=== PATIENT | female | born 1985 | race Caucasian/White ===

== ENCOUNTER → 2016-05-08 | Outpatient (CLI) | payer OTHER | LOC: LABWHC1 13:30 | PROVIDERS: ATTEND Obstetrics & Gynecology | DX: Z34.80 Encounter for supervision of other normal pregnancy, unspecified trimester (principal) | CPT/HCPCS: 36415; 84702 ==

== ENCOUNTER → 2016-05-10 | Outpatient (CLI) | payer OTHER | END | disposition home or self-care (01) | LOC: LABWHC1 13:37 | PROVIDERS: ATTEND Obstetrics & Gynecology | DX: Z34.80 Encounter for supervision of other normal pregnancy, unspecified trimester (principal); Z3A.00 Weeks of gestation of pregnancy not specified | CPT/HCPCS: 36415; 84702 ==

== ENCOUNTER → 2016-06-05 | Outpatient (CLI) | payer OTHER ==
--- NOTE | 2016-06-05 15:47 | US ---
EXAMINATION TYPE: US OB <= 14 wk fetus DATE OF EXAM: 06/05/2016 3:29 PM COMPARISON: NONE CLINICAL HISTORY: O46.91 1st Trimester Bleeding. EXAM PERFORMED: Transvaginal (TV) and Transabdominal (TA) EXAM MEASUREMENTS: GESTATIONAL AGE / DATING Physician Established: not established Dates by LMP: (8 weeks/1 days) EDC: 01/14/2017 Dates by First Scan: OIL CHANGER Dates by Current Scan for: (6 weeks/4 days) EDC: N/A MATERNAL ANATOMY Uterus: 7.3 x 4.6 x 4.6cm Right Ovary: not seen, overlying bowel gas Left Ovary: 3.0 x 2.5 x 2.3cm, 1.0cm cystic area seen Post CDS / Adnexa: wnl Presence of free fluid: no Presence of corpus luteal cyst: possible on the left Presence of subchorionic bleed: no GESTATION / SURVEY CRL: 1.2 (7 weeks/3 days) MSD: 1.4 (5 weeks/5 days) Yolk Sac (normal less than 6mm): 0.5cm Heart Rate: N/A IUP: Demise Date of LMP: 04/09/2016 Beta HcG (if available): not available Spoke with office regarding demise, patient to go to office next Single live intrauterine gestation is identified as gestational sac, yolk sac, pole are present . Gestational sac appears abnormal as is elongated. heart tones cannot be detected despite diana ral attempts. No free fluid is seen in pelvic cul-de-sac. Left ovary is seen. Right ovary is not clearly identified. Within left ovary there is 1.4 cm ill-defi tomeka anechoic lesion could reflect corpus luteal cyst. No suspicious extraovarian adnexal masses are s een. IMPRESSION: Abnormal study favoring intrauterine demise, too early to visualize live intrauterine is felt much less likely as heart tones are suspected to be visualized at this mean crown-rump length.
== END ==
LOC: RADUSWWP 14:59
PROVIDERS: ATTEND Obstetrics & Gynecology
DX: O02.1 Missed abortion (principal); Z3A.01 Less than 8 weeks gestation of pregnancy
CPT/HCPCS: 76801; 76817

== ENCOUNTER → 2016-06-05 | Outpatient (CLI) | payer OTHER ==
[2016-06-05 17:10] LABS: Basophils # (A) 0.1 k/uL (0-0.2); Basophils % (A) 1 %; CH 30.2; CHCM 33.9; Eosinophils # (A) 0.1 k/uL (0-0.7); Eosinophils % (A) 1 %; HCT 44.7 % (34.0-46.0); HDW 2.31; HGB 14.7 gm/dL (11.4-16.0); Luc # (Auto) 0.17; Luc % (Auto) 2; Lymphocytes # (A) 1.8 k/uL (1.0-4.8); Lymphocytes % (A) 19 %; MCH 29.4 pg (25.0-35.0); MCHC 32.9 g/dL (31.0-37.0); MCV 89.2 fL (80.0-100.0); Mean Platelet Volume 7.8; Monocytes # (A) 0.3 k/uL (0-1.0); Monocytes % (A) 4 %; Neutrophils % (A) 74 %; RBC 5.01 m/uL (3.80-5.40); WBC 9.5 k/uL (3.8-10.6); WBC (Perox) 9.54
== END | disposition home or self-care (01) ==
LOC: LABPAT 16:54
PROVIDERS: ATTEND Obstetrics & Gynecology
DX: Z01.812 Encounter for preprocedural laboratory examination (principal); N96 Recurrent pregnancy loss
CPT/HCPCS: 36415; 84439; 84443; 85025

== ENCOUNTER 2016-06-07 06:36 | Day surgery (SDC) | payer OTHER ==
[2016-06-06 11:31] VITALS: BMI 23.8
--- NOTE | 2016-06-06 16:47 | P.HPOB ---
History of Present Illness H&P Date: 06/06/16 Chief Complaint: Missed This is a 31 y.o. female, 2, para 0, with a LMP of 04/09/2016, who presents for suction dilatation and curettage secondary to missed . On Saturday, by her LMP, she should have been 8-1/7 weeks, but by US she was measuring about 7 weeks with no heart rate and irregular sac. She has no bleeding, but has been experiencing some cramping. She did have another confirmatory US in the office on 06/06/2016 that still showed a demise. Her blood type is O+. She would like tissue sent for chromosomal analysis since this is her 2nd miscarriage in a row and she has no live births. OB Hx: . 1 previous miscarriage at around 5 weeks, s/p D&C. 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 Social Hx: . Works at [employer]. Review of Systems Genitourinary: Reports pelvic pain (mild cramping), Reports , Denies abnormal vaginal bleeding Past Medical History Past Medical History: No Reported History Additional Past Medical History / Comment(s): miscarriage, History of hypoglycemia History of Any Multi-Drug Resistant Organisms: None Reported Past Surgical History: Cholecystectomy Additional Past Surgical History / Comment(s): D&C,Removal of precancerous moles Past Anesthesia/Blood Transfusion Reactions: Previous Problems w/ Anesthesia Additional Past Anesthesia/Blood Transfusion Reaction / Comment(s): Hx of panic attack and very emotional with anesthesia,no hx blood transfusion Past Psychological History: No Psychological Hx Reported Smoking Status: Never smoker Past Alcohol Use History: Rare Past Drug Use History: None Reported - Past Family History Mother Family Medical History: No Reported History Additional Family Medical History / Comment(s): glaucoma Father Family Medical History: Hypertension Additional Family Medical History / Comment(s): glaucoma Medications and Allergies Home Medications Medication Instructions Recorded Confirmed Type Pnv with Ca,No.72/Iron/FA 1 each PO DAILY 09/08/15 06/06/16 History [ Plus Tablet] Acetaminophen Tab [Tylenol] 1 tab PO Q4-6H PRN 09/09/15 06/07/16 History Allergies Allergy/AdvReac Type Severity Reaction Status Date / Time erythromycin base AdvReac Abdominal Verified 06/06/16 11:23 Pain Exam Osteopathic Statement: *. No significant issues noted on an osteopathic structural exam other than those noted in the History and Physical/Consult. - Vital Signs Vital signs: Intake and Output 06/06/16 06/06/16 06/06/16 06:59 14:59 22:59 Other: Weight 63.049 kg Patient Weight 06/07/16 06:59 Weight 63.049 kg HEENT: within normal limits Heart: regular rate and rhythm Lungs: clear to auscultation bilaterally Abdomen: soft, non-tender Pelvic exam: cervix closed, no bleeding. Uterus retroverted, non-tender, with no adnexal masses or tenderness. Extremities: neg. Alysa's. Assessment and Plan (1) Missed Status: Acute Plan: Proceed with suction dilatation and curettage. Will send tissue for chromosomal analysis due to recurrent miscarriage. I have discussed the risks, benefits, and alternative therapies for the above- mentioned procedure and for both sedation/anesthesia as well as necessary blood products administration, if indicated, as they pertain to this patient. The patient has indicated her understanding and acceptance of the risks and procedures discussed.
[~2016-06-07 06:36] MED LIST: DEXAMETHASONE SOD PHOSPHATE 10 MG/ML 1 ML VIAL IV ONE; HYDROmorphone 1 MG/ML 1 ML SYRINGE IVP PRN; LACTATED RINGERS 1,000 ML IV SCH; MIDAZOLAM 2 MG/2 ML VIAL IV PRN; ONDANSETRON 4 MG/2 ML VIAL IVP ONE; Pre Op ABX Message 1 EACH MISC MISCELLANE ONE
[2016-06-07] MEDS ORDERED: LIDOCAINE 1% 20 ML VIAL (10MG/ML) FOR IV START INTRADERMA ONE (07:10)
[2016-06-07] MEDS ORDERED: SCOPOLAMINE 1.5MG/72HR PATCH TRANSDERM ONE (07:14)
[2016-06-07] MEDS ORDERED: MIDAZOLAM 2 MG/2 ML VIAL ONE (07:36)
[2016-06-07] MEDS ORDERED: LIDOCAINE 1% INJ 10MG/ML (20 ML MDV) ONE (07:36)
[2016-06-07] MEDS ORDERED: fentaNYL (PF) 50 MCG/ML 2 ML AMP ONE (07:36)
[2016-06-07] MEDS ORDERED: PROPOFOL 10 MG/ML 20 ML VIAL IV ONE (07:36)
[2016-06-07 07:45] LABS: Glucose,Whole Blood 82 mg/dL (75-99)
--- NOTE | 2016-06-07 08:03 | P.OP ---
Date of Procedure: 06/07/16 Preoperative Diagnosis: Missed Recurrent miscarriage Postoperative Diagnosis: Same Procedure(s) Performed: Suction dilation and curettage Anesthesia: ALEX Surgeon: Veronica Ballard Estimated Blood Loss (ml): 5 Pathology: other (Products of conception) Condition: stable Disposition: same day Indications for Procedure: This is a 31 y.o. female, 2, para 0, with a LMP of 04/09/2016, who presents for suction dilatation and curettage secondary to missed . On Saturday, by her LMP, she should have been 8-1/7 weeks, but by US she was measuring about 7 weeks with no heart rate and irregular sac. She has no bleeding, but has been experiencing some cramping. She did have another confirmatory US in the office on 06/06/2016 that still showed a demise. Her blood type is O+. She would like tissue sent for chromosomal analysis since this is her 2nd miscarriage in a row and she has no live births. Operative Findings: Uterus is retroverted and sounded to 9 cm. No adnexal masses are palpated. A large amount of products of conception are obtained. Description of Procedure: The patient is taken to the operating room where she is placed in the dorsal lithotomy position. She is prepped and draped in the normal sterile fashion. Bladder is drained with a catheter and then removed. Examination is performed under anesthesia. Uterus is found to be retroverted with no adnexal masses palpated. A weighted speculum was placed in the patient's vagina and a right angle retractor was used to visualize the cervix. The anterior lip of the cervix is grasped with a single-tooth tenaculum. Uterus is sounded to 9 cm. Cervix is gently dilated with Neumann dilators until an 8 mm curved suction curet to be placed. Suction curetting was performed with a large amount of tissue obtained. Next a large curette was then used for gentle curettage with no further tissue obtained. Minimal bleeding was noted. Single-tooth tenaculum is removed. Pressure was applied to the tenaculum site with a ring forcep. Once this was removed no further bleeding was noted. All instruments are removed from the vagina. All sponge and needle counts are correct. The patient is then taken to recovery room in stable condition. Tissue will be sent for chromosomal analysis due to recurrent miscarriage.
[2016-06-07 08:05] VITALS: TEMP 97.9
[2016-06-07] MEDS ORDERED: KETOROLAC 30 MG/ML 1 ML VIAL IVP ONE (08:16)
[2016-06-07 08:22] VITALS: RESP 16
[2016-06-07] MEDS ORDERED: LACTATED RINGERS 1,000 ML IV ONE (08:35)
[2016-06-07 09:27] VITALS: BP 105/68; PULSE 76
[2016-06-12 08:02] LABS: Mis test requested (Non-blood) Chromosome Analysis
== END 2016-06-07 09:38 | disposition home or self-care (01) ==
LOC: OR 06:36
PROVIDERS: ATTEND Obstetrics & Gynecology
DX: O02.1 Missed abortion (principal); N96 Recurrent pregnancy loss; N85.4 Malposition of uterus; Z79.899 Other long term (current) drug therapy
CPT/HCPCS: 86900; 86901; 88305; 86850; 59820; J2250; J1100; J2405; J2001; J3010; J1885; J2704

== ENCOUNTER → 2016-07-02 | Outpatient (CLI) | payer OTHER ==
--- NOTE | 2016-07-02 13:22 | US ---
EXAMINATION TYPE: US transvaginal DATE OF EXAM: 07/02/2016 1:05 PM COMPARISON: 06/05/2016 CLINICAL HISTORY: R10.2 PELVIC PAIN,G89.18 PODTOPERATIVE PAIN. D&C 4 weeks ago, pelvic pain TECHNIQUE: Transvaginal (TV) Date of LMP: unknown EXAM MEASUREMENTS: Uterus: 5.9 x 3.9 x 4.4 cm Endometrial Stripe: 0.6 cm Right Ovary: 3.2 x 1.7 x 2.8 cm Left Ovary: 3.2 x 2.3 x 2.9 cm 1. Uterus: Retroverted Possible Nabothian cyst = 0.8cm 2. Endometrium: appears wnl 3. Right Ovary: follicles noted 4. Left Ovary: subtle complex area = 1.8 x 2.2 x 1.6cm 5. Bilateral Adnexa: free fluid adjacent to right ovary 6. Posterior cul-de-sac: free fluid noted IMPRESSION: 1. Cervical nabothian cysts. 2. Small amount of free fluid. 3. Complex area left ovary may reflect hemorrhagic cyst. Consider follow-up study in 6 weeks.
== END | disposition home or self-care (01) ==
LOC: RADUSWWP 12:42
PROVIDERS: ATTEND Obstetrics & Gynecology
DX: N88.8 Other specified noninflammatory disorders of cervix uteri (principal); R10.2 Pelvic and perineal pain; G89.18 Other acute postprocedural pain
CPT/HCPCS: 76830

== ENCOUNTER → 2016-07-11 | Outpatient (CLI) | payer OTHER | END | disposition home or self-care (01) | LOC: LABWHC1 16:36 | PROVIDERS: ATTEND Obstetrics & Gynecology Reproductive Endocrinology | DX: N91.0 Primary amenorrhea (principal) | CPT/HCPCS: 36415; 84702 ==

== ENCOUNTER → 2016-08-07 | Outpatient (CLI) | payer OTHER ==
[2016-08-07 08:50] LABS: Follicle Stimulating Hormone 5.3 mIU/mL; Prolactin 17.4 ng/mL (3.0-18.6)
== END | disposition home or self-care (01) ==
LOC: LABWHC1 07:08
PROVIDERS: ATTEND Obstetrics & Gynecology Reproductive Endocrinology
DX: N96 Recurrent pregnancy loss (principal)
CPT/HCPCS: 36415; 82627; 82670; 83001; 83002; 83498; 84146; 84403; 84439; 84443

== ENCOUNTER → 2016-09-19 | Outpatient (CLI) | payer OTHER ==
[2016-09-19 07:10] LABS: CH 30.1; CHCM 34.5; HCT 45.1 % (34.0-46.0); HDW 2.42; HGB 15.3 gm/dL (11.4-16.0); MCH 29.7 pg (25.0-35.0); MCHC 33.9 g/dL (31.0-37.0); MCV 87.6 fL (80.0-100.0); Mean Platelet Volume 8.9; RBC 5.15 m/uL (3.80-5.40); RDW 12.5 % (11.5-15.5); Reticulocyte % 1.3 % (0.5-2.0); WBC 6.8 k/uL (3.8-10.6)
[2016-09-19 12:50] LABS: ALT 31 U/L (9-52); AST 19 U/L (14-36); Alkaline Phosphatase 73 U/L (38-126); Anion Gap 9 mmol/L; Blood Urea Nitrogen 12 mg/dL (7-17); Calcium 9.5 mg/dL (8.4-10.2); Carbon Dioxide 27 mmol/L (22-30); Chloride 102 mmol/L (98-107); Glucose 88 mg/dL (74-99); Iron 133 ug/dL (37-170); Non-African American GFR(MDRD) >60 (>60 ml/min/1.73 sqM); Potassium 4.6 mmol/L (3.5-5.1); Sodium 138 mmol/L (137-145); Total Bilirubin 0.9 mg/dL (0.2-1.3); Total Protein 6.9 g/dL (6.3-8.2)
[2016-09-19 12:59] LABS: % Iron Saturation 37.6 % (20-50); Total Iron Binding Capacity 354 ug/dL (265-497)
[2016-09-20 12:14] LABS: Protein C (Activity) 98 % (70 - 130)
[2016-09-21 14:49] LABS: Free Protein S Antigen 95 % (50 - 147)
[2016-09-24 08:34] LABS: Mis test requested (Blood) FACTOR X ACTIVITY
== END | disposition home or self-care (01) ==
LOC: LABWHC1 06:38
PROVIDERS: ATTEND Family Medicine
DX: D64.9 Anemia, unspecified (principal); T14.8 Other injury of unspecified body region; D51.8 Other vitamin B12 deficiency anemias; R05 Cough; D68.2 Hereditary deficiency of other clotting factors
CPT/HCPCS: 36415; 80053; 81241; 82728; 83540; 83550; 85027; 85045; 85260; 85300; 85303; 85306

== ENCOUNTER → 2017-02-20 | Outpatient (CLI) | payer OTHER | END | disposition home or self-care (01) | LOC: LABWHC1 15:31 | PROVIDERS: ATTEND Obstetrics & Gynecology | DX: Z34.80 Encounter for supervision of other normal pregnancy, unspecified trimester (principal); Z3A.00 Weeks of gestation of pregnancy not specified | CPT/HCPCS: 36415; 84702 ==

== ENCOUNTER 2017-03-18 08:47 | Emergency (ER) | payer OTHER ==
[2017-03-18 08:52] VITALS: RESP 18
--- NOTE | 2017-03-18 09:27 | ED ---
Female Urogenital HPI - General Chief complaint: Vaginal Bleeding Stated complaint: Bleeding and 8 weeks Time Seen by Provider: 03/18/17 08:56 Source: patient Mode of arrival: ambulatory Limitations: no limitations - History of Present Illness Initial comments: This is a 31 year old female who presents with a chief complaint of bleeding which began Saturday. The patient is 8 weeks and states she passed a clot today. She states she has had cramping in her lower abdomen, mild lower back pain, and has active vaginal bleeding. She has a significant history of 2 previous miscarriages in the first trimester. The patient is and is currently being seen by Dr. Ballard. She denies nausea, vomiting, diarrhea or recent illness. Last Menstrual Period: 01/23/17 - Related Data Home Medications Medication Instructions Recorded Confirmed Pnv,Calcium 72/Iron/Folic Acid 1 tab PO HS 09/08/15 03/18/17 [ Plus Tablet] Allergies Allergy/AdvReac Type Severity Reaction Status Date / Time erythromycin base AdvReac Abdominal Verified 03/18/17 09:33 Pain Review of Systems ROS Statement: Those systems with pertinent positive or pertinent negative responses have been documented in the HPI. ROS Other: All systems not noted in ROS Statement are negative. Past Medical History Past Medical History: No Reported History Additional Past Medical History / Comment(s): miscarriage, History of hypoglycemia History of Any Multi-Drug Resistant Organisms: None Reported Past Surgical History: Cholecystectomy Additional Past Surgical History / Comment(s): D&C,Removal of precancerous moles Past Anesthesia/Blood Transfusion Reactions: Previous Problems w/ Anesthesia Additional Past Anesthesia/Blood Transfusion Reaction / Comment(s): Hx of panic attack and very emotional with anesthesia,no hx blood transfusion Past Psychological History: No Psychological Hx Reported Smoking Status: Never smoker Past Alcohol Use History: Rare Past Drug Use History: None Reported - Past Family History Mother Family Medical History: No Reported History Additional Family Medical History / Comment(s): glaucoma Father Family Medical History: Hypertension Additional Family Medical History / Comment(s): glaucoma General Exam Limitations: no limitations General appearance: alert, in no apparent distress Head exam: Present: atraumatic, normocephalic, normal inspection Eye exam: Present: normal appearance Respiratory exam: Present: normal lung sounds bilaterally. Absent: respiratory distress, wheezes, rales, rhonchi, stridor Cardiovascular Exam: Present: regular rate, normal rhythm, normal heart sounds. Absent: rubs, gallop, clicks GI/Abdominal exam: Present: soft, tenderness (Tender with palpation of the right lower quadrant). Absent: distended, guarding, rebound, rigid Extremities exam: Present: normal inspection Back exam: Absent: CVA tenderness (R), CVA tenderness (L) Neurological exam: Present: alert, oriented X3 Skin exam: Present: warm, dry Course Vital Signs 03/18/17 08:49 Temperature 98.1 F Pulse Rate 95 Respiratory 18 Rate Blood Pressure 139/96 O2 Sat by Pulse 100 Oximetry Medical Decision Making - Medical Decision Making 31-year-old female presents emergency Department chief complaint vaginal bleeding and early . Patient had lab work, ultrasound. Patient's ultrasound shows single viable IUP measuring 6 weeks and 5 days heart rate 125. Patient's hCG is 9300. This was an improvement from prior. Patient has appointment on Saturday with her CERTIFIED PROFESSIONAL CODER. Patient was recommended to have a pelvic exam though she declined states that she would rather not she has appointment on Saturday. Patient we given a prescription for repeat hCG and return for any worsening symptoms. - Lab Data Result diagrams: 03/18/17 09:30 03/18/17 09:30 Lab Results 03/18/17 03/18/17 03/18/17 Range/Units 09:29 09:30 09:30 WBC (3.8-10.6) k/uL RBC (3.80-5.40) m/uL Hgb (11.4-16.0) gm/dL Hct (34.0-46.0) % MCV (80.0-100.0) fL MCH (25.0-35.0) pg MCHC (31.0-37.0) g/dL RDW (11.5-15.5) % Plt Count (150-450) k/uL Neutrophils % % Lymphocytes % % Monocytes % % Eosinophils % % Basophils % % Neutrophils # (1.3-7.7) k/uL Lymphocytes # (1.0-4.8) k/uL Monocytes # (0-1.0) k/uL Eosinophils # (0-0.7) k/uL Basophils # (0-0.2) k/uL Sodium 140 (137-145) mmol/L Potassium 4.5 (3.5-5.1) mmol/L Chloride 105 (98-107) mmol/L Carbon Dioxide 23 (22-30) mmol/L Anion Gap 12 mmol/L BUN 9 (7-17) mg/dL Creatinine 0.59 (0.52-1.04) mg/dL Est GFR (MDRD) Af Amer >60 (>60 ml/min/1.73 sqM) Est GFR (MDRD) Non-Af >60 (>60 ml/min/1.73 sqM) Glucose 85 (74-99) mg/dL Calcium 9.6 (8.4-10.2) mg/dL HCG, Quant 9365.4 mIU/mL Urine Color Light Yellow Urine Appearance Clear (Clear) Urine pH 6.5 (5.0-8.0) Ur Specific [place] 1.003 (1.001-1.035) Urine Protein Negative (Negative) Urine Glucose (UA) Negative (Negative) Urine Ketones Negative (Negative) Urine Blood Small H (Negative) Urine Nitrite Negative (Negative) Urine Bilirubin Negative (Negative) Urine Urobilinogen <2.0 (<2.0) mg/dL Ur Leukocyte Esterase Negative (Negative) Urine RBC 1 (0-5) /hpf Urine WBC 2 (0-5) /hpf Ur Squamous Epith Cells 1 (0-4) /hpf Urine Bacteria Moderate H (None) /hpf Urine Mucus Rare H (None) /hpf Blood Type O Positive Blood Type Recheck No 03/18/17 Range/Units 09:30 WBC 7.2 (3.8-10.6) k/uL RBC 4.98 (3.80-5.40) m/uL Hgb 14.8 (11.4-16.0) gm/dL Hct 44.3 (34.0-46.0) % MCV 89.0 (80.0-100.0) fL MCH 29.7 (25.0-35.0) pg MCHC 33.3 (31.0-37.0) g/dL RDW 13.2 (11.5-15.5) % Plt Count 228 (150-450) k/uL Neutrophils % 73 % Lymphocytes % 20 % Monocytes % 4 % Eosinophils % 1 % Basophils % 0 % Neutrophils # 5.2 (1.3-7.7) k/uL Lymphocytes # 1.5 (1.0-4.8) k/uL Monocytes # 0.3 (0-1.0) k/uL Eosinophils # 0.1 (0-0.7) k/uL Basophils # 0.0 (0-0.2) k/uL Sodium (137-145) mmol/L Potassium (3.5-5.1) mmol/L Chloride (98-107) mmol/L Carbon Dioxide (22-30) mmol/L Anion Gap mmol/L BUN (7-17) mg/dL Creatinine (0.52-1.04) mg/dL Est GFR (MDRD) Af Amer (>60 ml/min/1.73 sqM) Est GFR (MDRD) Non-Af (>60 ml/min/1.73 sqM) Glucose (74-99) mg/dL Calcium (8.4-10.2) mg/dL HCG, Quant mIU/mL Urine Color Urine Appearance (Clear) Urine pH (5.0-8.0) Ur Specific [place] (1.001-1.035) Urine Protein (Negative) Urine Glucose (UA) (Negative) Urine Ketones (Negative) Urine Blood (Negative) Urine Nitrite (Negative) Urine Bilirubin (Negative) Urine Urobilinogen (<2.0) mg/dL Ur Leukocyte Esterase (Negative) Urine RBC (0-5) /hpf Urine WBC (0-5) /hpf Ur Squamous Epith Cells (0-4) /hpf Urine Bacteria (None) /hpf Urine Mucus (None) /hpf Blood Type Blood Type Recheck Disposition Clinical Impression: Threatened miscarriage in early Disposition: HOME SELF-CARE Condition: Stable Instructions: Threatened Miscarriage (ED) Additional Instructions: Please return to the Emergency Department if symptoms worsen or any other concerns. Referrals: Artur Lewis DO [Primary Care Provider] - 1-2 days Veronica Ballard DO [Doctor of Osteopathic Medicine] - 1-2 days Time of Disposition: 10:49
[2017-03-18 09:43] LABS: Basophils % (A) 0 %; Eosinophils # (A) 0.1 k/uL (0-0.7); Eosinophils % (A) 1 %; HCT 44.3 % (34.0-46.0); HGB 14.8 gm/dL (11.4-16.0); Lymphocytes # (A) 1.5 k/uL (1.0-4.8); Lymphocytes % (A) 20 %; MCH 29.7 pg (25.0-35.0); MCHC 33.3 g/dL (31.0-37.0); Monocytes # (A) 0.3 k/uL (0-1.0); Monocytes % (A) 4 %; Neutrophils # (A) 5.2 k/uL (1.3-7.7); Neutrophils % (A) 73 %; Platelet Count 228 k/uL (150-450); RBC 4.98 m/uL (3.80-5.40); RDW 13.2 % (11.5-15.5); WBC 7.2 k/uL (3.8-10.6)
[2017-03-18 09:45] LABS: Appearance,Urine Clear (Clear); Bacteria,Urine Moderate /hpf; Bilirubin,Urine Negative (Negative); Blood,Urine Small (Negative); Color,Urine Light Yellow; Glucose,Urine (UA) Negative (Negative); Ketones,Urine Negative (Negative); Leukocyte Esterase,Urine Negative (Negative); Mucus,Urine Rare /hpf; Nitrite,Urine Negative (Negative); PH, Urine 6.5 (5.0-8.0); Protein,Urine Negative (Negative); RBC,Urine 1 /hpf (0-5); Specific Gravity,Urine 1.003 (1.001-1.035); Squamous Epithelial Cell,Urine 1 /hpf (0-4); Urobilinogen,Urine <2.0 mg/dL (<2.0); WBC,Urine 2 /hpf (0-5)
[2017-03-18 09:54] LABS: Anion Gap 12 mmol/L; Blood Urea Nitrogen 9 mg/dL (7-17); Calcium 9.6 mg/dL (8.4-10.2); Carbon Dioxide 23 mmol/L (22-30); Chloride 105 mmol/L (98-107); Glucose 85 mg/dL (74-99); Sodium 140 mmol/L (137-145)
[2017-03-18 09:56] LABS: Potassium 4.5 mmol/L (3.5-5.1)
[2017-03-18 10:11] LABS: HCG,Quantitative Serum 9365.4 mIU/mL
--- NOTE | 2017-03-18 10:17 | US ---
EXAMINATION TYPE: US OB <=14 wks transvag DATE OF EXAM: 03/18/2017 COMPARISON: NONE CLINICAL HISTORY: Pain. Spotting EXAM PERFORMED: Transvaginal (TV) and Transabdominal (TA) EXAM MEASUREMENTS: GESTATIONAL AGE / DATING Physician Established: Not yet established Dates by LMP: (7 weeks/5 days) EDC: 10/30/2017 Dates by First Scan: No previous this is first scan Dates by Current Scan for: (6 weeks/5 days) EDC: 11/06/2017 MATERNAL ANATOMY Uterus: 8.2 x 4.8 x 4.3 cm Right Ovary: 2.2 x 1.0 x 1.2 cm Left Ovary: 3.7 x 1.7 x 2.1 cm Post CDS / Adnexa: wnl Presence of free fluid: No Presence of corpus luteal cyst: Yes, left ovary measuring 1.8 x 1.7 x 1.7 cm Presence of subchorionic bleed: No GESTATION / SURVEY CRL: 0.76 cm (6 weeks/5 days) Yolk Sac (normal less than 6mm): 2 mm Heart Rate: 125 bpm Rhythm: Normal IUP: Viable IUP Date of LMP: 01/23/2017 Beta HcG (if available): Not available at this time Viable IUP with an AIXA of 11/06/2017 IMPRESSION: Viable IUP with an AIXA of 11/06/2017
[2017-03-18 11:06] VITALS: BP 99/64; PULSE 96; TEMP 98
== END 2017-03-18 11:02 | disposition home or self-care (01) ==
LOC: EC 08:47
DX: O20.0 Threatened abortion (principal); Z79.899 Other long term (current) drug therapy; Z88.1 Allergy status to other antibiotic agents; Z90.49 Acquired absence of other specified parts of digestive tract; Z3A.01 Less than 8 weeks gestation of pregnancy
CPT/HCPCS: 36415; 76801; 76817; 80048; 81001; 84702; 85025; 86900; 86901; 99284

== ENCOUNTER → 2017-03-20 | Outpatient (CLI) | payer OTHER | END | disposition home or self-care (01) | LOC: LABWHC1 08:15 | PROVIDERS: ATTEND Physician Assistant | DX: O20.0 Threatened abortion (principal) | CPT/HCPCS: 36415; 84702 ==

== ENCOUNTER → 2017-03-22 | Outpatient (CLI) | payer OTHER ==
[2017-03-22 12:54] LABS: HCT 42.4 % (34.0-46.0); MCH 29.5 pg (25.0-35.0); MCV 89.5 fL (80.0-100.0); Mean Platelet Volume 8.9; Platelet Count 244 k/uL (150-450); RBC 4.74 m/uL (3.80-5.40); RDW 12.5 % (11.5-15.5); WBC 9.8 k/uL (3.8-10.6)
[2017-03-22 13:03] LABS: Glucose 84 mg/dL (74-99)
[2017-03-23 07:16] LABS: Toxoplasma Antibody (IgG) <3.0 IU/mL (<7.2); Toxoplasma Antibody (IgM) <3.0 AU/mL (<8.0)
== END | disposition home or self-care (01) ==
LOC: LABWHC1 09:06
PROVIDERS: ATTEND Obstetrics & Gynecology
DX: Z34.81 Encounter for supervision of other normal pregnancy, first trimester (principal)
CPT/HCPCS: 36415; 82565; 82947; 85027; 86592; 86762; 86777; 86778; 86850; 86900; 86901; 87340

== ENCOUNTER 2017-04-22 05:47 | Day surgery (SDC) | payer OTHER ==
[2017-04-19 12:55] VITALS: BMI 24.3
--- NOTE | 2017-04-21 20:03 | P.HPOB ---
History of Present Illness H&P Date: 04/21/17 Chief Complaint: Missed This is a 32-year-old female 3 para 0 who presents with vaginal spotting for the last week. She did have an ultrasound in the office on Saturday that showed a demise at approximately 8 weeks 1 day with no heart tones and a calcified yolk sac. She did have a previous ultrasound a couple weeks ago that did show heart tones present. Since this is her 3rd miscarriage in a row, she would like chromosomal testing done. OB HX: . History of 2 previous miscarriages. 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 Social Hx: . 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 Review of Systems Constitutional: Denies chills, Denies fever Eyes: denies blurred vision, denies pain Ears, nose, mouth and throat: Denies headache, Denies sore throat Cardiovascular: Denies chest pain, Denies shortness of breath Respiratory: Denies cough Gastrointestinal: Reports nausea, Denies abdominal pain, Denies diarrhea, Denies vomiting Genitourinary: Reports , Denies pelvic pain Musculoskeletal: Denies myalgias Integumentary: Denies pruritus, Denies rash Neurological: Denies numbness, Denies weakness Psychiatric: Denies anxiety, Denies depression Past Medical History Past Medical History: No Reported History Additional Past Medical History / Comment(s): Hx miscarriage X2, hx hypoglycemia. History of Any Multi-Drug Resistant Organisms: None Reported Past Surgical History: Cholecystectomy Additional Past Surgical History / Comment(s): D&C X2, removal of precancerous moles. Past Anesthesia/Blood Transfusion Reactions: Previous Problems w/ Anesthesia Additional Past Anesthesia/Blood Transfusion Reaction / Comment(s): Hx of panic attack and very emotional with anesthesia, no hx blood transfusion. Past Psychological History: No Psychological Hx Reported Smoking Status: Never smoker Past Alcohol Use History: Rare Past Drug Use History: None Reported - Past Family History Mother Family Medical History: No Reported History Additional Family Medical History / Comment(s): glaucoma Father Family Medical History: Hypertension Additional Family Medical History / Comment(s): glaucoma Medications and Allergies Home Medications Medication Instructions Recorded Confirmed Type Pnv,Calcium 72/Iron/Folic Acid 1 tab PO HS 09/07/04/19/17 History [ Plus Tablet] Allergies Allergy/AdvReac Type Severity Reaction Status Date / Time erythromycin base AdvReac Abdominal Verified 04/19/17 12:43 Pain Exam Osteopathic Statement: *. No significant issues noted on an osteopathic structural exam other than those noted in the History and Physical/Consult. HEENT: Within normal limits Heart: Regular rate and rhythm Lungs: Clear to auscultation bilaterally Abdomen: Cervix: Multiparous os with scant dark red bleeding Pelvic exam: Uterus is small, mid position with no adnexal masses or tenderness noted Extremities: Negative Homans Assessment and Plan (1) Missed Status: Acute Code(s): O02.1 - MISSED SNOMED Code(s): 37353189 Plan: Proceed with suction dilation and curettage. Will send tissue for chromosomal analysis. I have discussed the risks, benefits, and alternative therapies for the above- mentioned procedure and for both sedation/anesthesia as well as necessary blood products administration, if indicated, as they pertain to this patient. The patient has indicated her understanding and acceptance of the risks and procedures discussed.
[~2017-04-22 05:47] MED LIST changes: +HYDROmorphone 0.5 MG/0.5 ML SYRINGE IVP PRN; -HYDROmorphone 1 MG/ML 1 ML SYRINGE IVP PRN; -MIDAZOLAM 2 MG/2 ML VIAL IV PRN
[2017-04-22 06:42] LABS: Glucose,Whole Blood 92 mg/dL (75-99)
[2017-04-22] MEDS ORDERED: LIDOCAINE 1% 20 ML VIAL (10MG/ML) FOR IV START INTRADERMA ONE (06:42)
[2017-04-22] MEDS ORDERED: SCOPOLAMINE 1.5MG/72HR PATCH TRANSDERM ONE (06:45)
[2017-04-22] MEDS ORDERED: PROPOFOL 10 MG/ML 20 ML VIAL IV ONE (07:13)
[2017-04-22] MEDS ORDERED: LIDOCAINE 1% INJ 10MG/ML (20 ML MDV) ONE (07:13)
[2017-04-22] MEDS ORDERED: MIDAZOLAM 2 MG/2 ML VIAL ONE (07:13)
[2017-04-22] MEDS ORDERED: fentaNYL (PF) 50 MCG/ML 2 ML AMP ONE (07:13)
--- NOTE | 2017-04-22 07:41 | P.OP ---
Date of Procedure: 04/22/17 Preoperative Diagnosis: Missed Postoperative Diagnosis: Same Procedure(s) Performed: Suction dilation and curettage Anesthesia: ALEX Surgeon: Veronica Ballard Estimated Blood Loss (ml): 5 Pathology: other (Products of conception) Condition: stable Disposition: same day Indications for Procedure: This is a 32-year-old female 3 para 0 who presents with vaginal spotting for the last week. She did have an ultrasound in the office on Saturday that showed a demise at approximately 8 weeks 1 day with no heart tones and a calcified yolk sac. She did have a previous ultrasound a couple weeks ago that did show heart tones present. Since this is her 3rd miscarriage in a row, she would like chromosomal testing done. Operative Findings: Uterus is retroverted and sounded to 10-1/2 cm. No adnexal masses are palpated. A moderate to large amount of products of conception are obtained. Description of Procedure: The patient is taken to the operating room where she is placed in the dorsal lithotomy position. She is prepped and draped in the normal sterile fashion. Bladder is drained with a catheter and then removed. Examination is performed under anesthesia. Uterus is found to be mildly enlarged and retroverted with no adnexal masses palpated. Next a weighted speculum was placed in the patient' s vagina and a right angle retractor was used to visualize the cervix. The anterior lip of the cervix is grasped with a single-tooth tenaculum. Next the uterus is sounded to 10-1/2 cm. Next the cervix is gently dilated with Neumann dilators until a 8 mm curved suction curet could be placed. Suction curetting was performed with a large amount of tissue obtained. Next a medium-size sharp curet was gently introduced and gentle sharp curettage was performed with no further tissue obtained. Next section curetting was performed one further time to remove any blood. The suction curet was removed and minimal bleeding was noted. Single-tooth tenaculum was removed and no bleeding was noted. The specimen will be sent to pathology for chromosomal analysis in saline. All sponge and needle counts are correct. Patient is then taken to recovery room in stable condition.
[2017-04-22 07:45] VITALS: TEMP 97.4
[2017-04-22] MEDS ORDERED: HYDROmorphone 0.5 MG/0.5 ML SYRINGE IVP ONE (07:52)
[2017-04-22 08:25] VITALS: RESP 16
[2017-04-22 08:37] VITALS: BP 116/80; PULSE 80
== END 2017-04-22 08:54 | disposition home or self-care (01) ==
LOC: OR 05:47
PROVIDERS: ATTEND Obstetrics & Gynecology
DX: O02.1 Missed abortion (principal); N85.4 Malposition of uterus; Z3A.08 8 weeks gestation of pregnancy; Z88.1 Allergy status to other antibiotic agents
CPT/HCPCS: 88305; 59820; J2250; J1100; J2405; J2001; J3010; J2704; J1170

== ENCOUNTER → 2017-09-30 | Outpatient (CLI) | payer OTHER ==
--- NOTE | 2017-09-30 10:22 | MR ---
EXAMINATION TYPE: MR brain wo/w con DATE OF EXAM: 09/30/2017 COMPARISON: NONE HISTORY: Frontal R lobe venous Angioma per order TECHNIQUE: Multiplanar, multisequence images of the brain and brainstem is performed without and with IV contras t, utilizing 6 mL intravenous Gadavist . FINDINGS: Diffusion weighted images demonstrate no evidence of a recent infarct or other diffusion ab normality. There is no extra-axial fluid collection or significant white matter signal abnormality. The ventricular system and cisternal spaces are normal in size and appearance. The brain volume is age appropriate. Midline structures demonstrate normal morphology. The craniocervical junction appears within normal limits. Post contrast images demonstrate branching linear area of enhancement over the right frontal lobe consistent with venous angioma. No additional areas of suspicious enhancement identified. The dural venous sinuses appear patent. The visualized sinuses are clear and the globes are intact. IMPRESSION: Venous angioma over right frontal lobe confirmed.
== END ==
LOC: RADMRIMAIN 08:33
PROVIDERS: ATTEND Family Medicine
DX: Q28.3 Other malformations of cerebral vessels (principal)
CPT/HCPCS: 70553; A9581

== ENCOUNTER → 2018-01-27 | Outpatient (CLI) | payer OTHER ==
--- NOTE | 2018-01-27 15:01 | XR ---
EXAMINATION TYPE: XR chest 2V DATE OF EXAM: 01/27/2018 COMPARISON: NONE HISTORY: Sharp epigastric pain TECHNIQUE: Frontal and lateral views of the chest are obtained. FINDINGS: There is a linear opacity that does not persist on the lateral view in the left lung base t herefore either representing prominent vasculature or atelectasis. There is no focal air space opacit y, pleural effusion, or pneumothorax seen. The cardiac silhouette size is within normal limits. Th e osseous structures are intact. IMPRESSION: Probable minimal left basilar atelectasis otherwise no acute cardiopulmonary process.
--- NOTE | 2018-01-27 15:04 | XR ---
EXAMINATION TYPE: XR abdomen 1V DATE OF EXAM: 01/27/2018 2:53 PM CLINICAL HISTORY: Abdominal pain TECHNIQUE: Single upright image of the abdomen is obtained. COMPARISON: None. FINDINGS: Scattered gas is seen in nondilated small bowel loops. Gas and fecal material is seen in no ndilated colon. There is no pneumoperitoneum or abnormal calcification appreciated. The lung bases ar e clear and the osseous structures are intact. Cholecystectomy clips are noted within the right upper quadrant. Liver is elongated just beyond the iliac crest IMPRESSION: Nonobstructive bowel gas pattern. The liver is noted to be elongated that may represent a normal vari ant Sunita's lobe or hepatomegaly.
== END | disposition home or self-care (01) ==
LOC: RADXRMAIN 14:28
PROVIDERS: ATTEND Family Medicine
DX: Q44.7 Other congenital malformations of liver (principal); J15.9 Unspecified bacterial pneumonia
CPT/HCPCS: 71046; 74018

== ENCOUNTER → 2020-02-17 | Outpatient (CLI) | payer BC ==
--- NOTE | 2020-02-17 11:40 | MM ---
Reason for exam: clinical finding. Baseline mammogram. History: Patient is nulliparous. Taking hormonal contraceptives beginning at age 16. Physical Findings: Nurse Summary: 1cm nodule in the right breast at 11 o'clock (nurse elza). MG 3D Diag Mammo W/Cad ROXANA Bilateral CC and MLO view(s) were taken. The breast tissue is extremely dense which could obscure a lesion on mammography. There is no discrete abnormality including area of concern. These results were verbally communicated with the patient and result sheet given to the patient on 02/17/20. ASSESSMENT: Incomplete: need additional imaging evaluation, BI-RAD 0 RECOMMENDATION: Ultrasound of the right breast. Manage patient on a clinical basis.
--- NOTE | 2020-02-17 11:41 | USB ---
Reason for exam: additional evaluation requested from abnormal screening. History: Patient is nulliparous. Taking hormonal contraceptives beginning at age 16. US Breast RT Left complete breast ultrasound includes all four quadrants, the retroareolar region and axilla. Finding demonstrates a 0.5 x 0.3 x 0.3cm cystic lesion at 7 o'clock and 0.6 x 0.5 x 0.3cm cystic lesion at 11 o'clock. These results were verbally communicated with the patient and result sheet given to the patient on 02/17/20. ASSESSMENT: Benign, BI-RAD 2 RECOMMENDATION: Routine screening mammogram of both breasts at age 38. Manage patient on a clinical basis.
== END | disposition home or self-care (01) ==
LOC: RADMAMWWP 09:55
PROVIDERS: ATTEND Obstetrics & Gynecology Obstetrics
DX: N64.4 Mastodynia (principal); N63.11 Unspecified lump in the right breast, upper outer quadrant
CPT/HCPCS: 77062; 77066

== ENCOUNTER → 2021-06-16 | Outpatient (CLI) | payer BC ==
--- NOTE | 2021-06-16 15:41 | XR ---
EXAMINATION TYPE: XR cervical spine comp DATE OF EXAM: 06/16/2021 COMPARISON: None HISTORY: Neck pain TECHNIQUE: 5 views cervical spine FINDINGS: No acute fractures are evident. Vertebral body heights and disc heights are preserved. The odontoid is limited with overlying occiput. Posterior spinal lamellar line is intact. IMPRESSION: 1. No acute osseous abnormality cervical spine
== END | disposition home or self-care (01) ==
LOC: RADXRMAIN 15:15
PROVIDERS: ATTEND Family Medicine
DX: M54.2 Cervicalgia (principal)
CPT/HCPCS: 72050

== ENCOUNTER → 2021-07-11 | Outpatient (CLI) | payer BC ==
--- NOTE | 2021-07-12 07:51 | MR ---
EXAMINATION TYPE: MR brain/cspine wo DATE OF EXAM: 07/11/2021 COMPARISON: Cervical spine x-ray June 16, 2021. MRI brain September 30, 2017 HISTORY: Prior angioma, Rt ear pain, villarreal, numbness/weakness left arm, memory loss TECHNIQUE: Multiplanar, multisequence imaging of the brain and brainstem along with cervical spine ar e all performed without IV contrast. FINDINGS: BRAIN: Diffusion weighted images demonstrate no evidence of a recent infarct or other diffusion abnormality. There is no extra-axial fluid collection or significant white matter signal abnormality. The ventr icular system and cisternal spaces remain normal in size and appearance. The brain volume is age tania ropriate. Midline structures redemonstrate normal morphology. The craniocervical junction appears within tyra l limits. Normal vascular flow voids redemonstrated. Unusual flow void in the right frontal lobe christiana esponds to an enhancing vessel or suspected vascular anomaly probable venous angioma on axial images 17 through 21. No significant change in appearance from prior MRI. The visualized sinuses are clear a nd the globes are intact. No suspicious opacification of mastoid air cells. IMPRESSION: Stable vascular anomaly presumed Venous angioma over right frontal lobe. No suspicious wh ite matter changes or significant change from prior MRI. C-SPINE: FINDINGS: Sagittal images of the cervical spine show the craniocervical junction to appear within nor mal limits. The cervical and upper thoracic spinal cord is normal in course, caliber, and signal. V ertebral alignment is straightened. The vertebral body and intravertebral disk heights are normal. The bone marrow signal intensity is within normal limits. Axial and sagittal images show tiny broad-based left disc protrusion and posterior annular tear C5-C6 level minimally effacing the anterior thecal sac. Other levels appear within normal limits. Neural f oramina are patent bilaterally at all cervical levels. IMPRESSION: Tiny disc herniation C5-C6 level is otherwise unremarkable.
== END | disposition home or self-care (01) ==
LOC: RADMRIMAIN 07:59
PROVIDERS: ATTEND Family Medicine
DX: M50.222 Other cervical disc displacement at C5-C6 level (principal)
CPT/HCPCS: 70551; 72141

== ENCOUNTER 2021-08-07 12:43 | Emergency (ER) | payer BC ==
[2021-08-07 12:49] VITALS: TEMP 98.1
[2021-08-07] MEDS ORDERED: LABETALOL 5 MG/ML VIAL MDV IVP STA (15:09)
[2021-08-07] MEDS ORDERED: PANTOPRAZOLE 40 MG/10 ML VIAL IVP STA (15:09)
--- NOTE | 2021-08-07 15:10 | XR ---
EXAMINATION TYPE: XR chest 2V DATE OF EXAM: 08/07/2021 COMPARISON: NONE HISTORY: Chest pain TECHNIQUE: Frontal and lateral views of the chest are obtained. FINDINGS: There is no focal air space opacity, pleural effusion, or pneumothorax seen. The cardiac silhouette size is within normal limits. The osseous structures are intact. IMPRESSION: No acute cardiopulmonary process.
[2021-08-07 15:13] LABS: Basophils % (A) 0 %; Eosinophils # (A) 0.1 k/uL (0-0.7); Eosinophils % (A) 0 %; HCT 50.4 % (34.0-46.0); HGB 16.7 gm/dL (11.4-16.0); Lymphocytes # (A) 1.8 k/uL (1.0-4.8); Lymphocytes % (A) 11 %; MCH 30.2 pg (25.0-35.0); MCHC 33.2 g/dL (31.0-37.0); MCV 91.1 fL (80.0-100.0); Mean Platelet Volume 8.8; Monocytes # (A) 0.8 k/uL (0-1.0); Monocytes % (A) 5 %; Neutrophils # (A) 13.6 k/uL (1.3-7.7); Neutrophils % (A) 83 %; Platelet Count 386 k/uL (150-450); RBC 5.54 m/uL (3.80-5.40); RDW 12.2 % (11.5-15.5); WBC 16.5 k/uL (3.8-10.6)
[2021-08-07 15:15] LABS: ALT 21 U/L (4-34); AST 24 U/L (14-36); African American GFR (CKD) >90 (>60 ml/min/1.73 sqM); Alkaline Phosphatase 72 U/L (38-126); Anion Gap 12 mmol/L; Blood Urea Nitrogen 15 mg/dL (7-17); Calcium 10.1 mg/dL (8.4-10.2); Carbon Dioxide 22 mmol/L (22-30); Chloride 100 mmol/L (98-107); Glucose 98 mg/dL (74-99); Magnesium 2.2 mg/dL (1.6-2.3); Non-African American GFR(CKD) >90 (>60 ml/min/1.73 sqM); Potassium 3.8 mmol/L (3.5-5.1); Sodium 134 mmol/L (137-145); Total Bilirubin 0.7 mg/dL (0.2-1.3)
[2021-08-07 15:18] LABS: Appearance,Urine Clear (Clear); Bilirubin,Urine Negative (Negative); Blood,Urine Negative (Negative); Color,Urine Light Yellow; Glucose,Urine (UA) Negative (Negative); Ketones,Urine Negative (Negative); Leukocyte Esterase,Urine Negative (Negative); Nitrite,Urine Negative (Negative); PH, Urine 6.5 (5.0-8.0); Protein,Urine Negative (Negative); Specific Gravity,Urine 1.008 (1.001-1.035); Urobilinogen,Urine <2.0 mg/dL (<2.0)
[2021-08-07 15:43] LABS: INR 1.4 (<1.2); Partial Thromboplastin Time 27.1 sec (22.0-30.0); Prothrombin Time 14.6 sec (9.0-12.0)
[2021-08-07 16:05] VITALS: RESP 20
[2021-08-07 17:13] VITALS: BP 145/93; PULSE 92
--- NOTE | 2021-08-07 18:13 | CT ---
EXAMINATION TYPE: CT abdomen wo con CT DLP: 242 mGycm, Automated exposure control for dose reduction was used. DATE OF EXAM: 08/07/2021 5:54 PM COMPARISON: None CLINICAL INDICATION:Female, 36 years old with history of ELEVATED WBC, EPIGASTRIC PAIN; Elevated WBC, epigastric pain TECHNIQUE: Standard CT of the abdomen without IV or oral contrast. Lack of IV or oral contrast limi ts evaluation of solid and hollow organ viscera. Coronal and sagittal reformats were performed. FINDINGS: LOWER CHEST: Unremarkable ABDOMEN LIVER: Unremarkable GALLBLADDER AND BILE DUCTS: Gallbladder is surgically absent with mild intrahepatic and extra hepatic biliary dilatation likely physiologic and a postcholecystectomy change. No evidence of choledocholit hiasis. The common duct measures up to 10 mm PANCREAS: Unremarkable. SPLEEN: Unremarkable. ADRENAL GLANDS: Unremarkable. KIDNEYS AND URETERS: Nonobstructing calculi are seen bilaterally measuring up to 3 mm on the right an d 2 mm on the left. STOMACH AND BOWEL: No evidence of bowel obstruction. PERITONEUM: No evidence of pneumoperitoneum or free fluid. VASCULATURE: No evidence of aortic aneurysm. MUSCULOSKELETAL: No acute osseous abnormalities. LYMPH NODES: No gross evidence for lymphadenopathy. SOFT TISSUE/ABDOMINAL WALL: Unremarkable IMPRESSION: 1. No evidence for acute process. 2. Nonobstructing bilateral renal calculi
--- NOTE | 2021-08-07 18:43 | ED ---
Chest Pain HPI - General Chief Complaint: Chest Pain Stated Complaint: chest pain Time Seen by Provider: 08/07/21 14:33 Source: patient, RN notes reviewed Mode of arrival: ambulatory Limitations: no limitations - History of Present Illness Initial Comments: Patient is a 36-year-old female who presents to the emergency room with complaints of epigastric pain radiating through to her back which began during the night with some mild improvement with 2 doses of Tums throughout the night. She is concerned regarding the chest pain as she has been following with neurology outpatient for neck pain and reports that she's had elevated blood pressures and the neurology office in the 180-170/110 range. He states that he patient states that Dr. Stanley advised her to continue to monitor and now is likely due to pain. She has not seen her primary care provider regarding the hypertension his eyes previous hypertension history. She reports that after her second dose of cortisone injection into her neck along with the use of baclofen the symptoms began mildly and have progressively gotten worse. She denies any previous history of acid reflux or GI problems. She has a history of a cholecystectomy. With the exception of her chronic neck and jaw pain which she is following with neurology for she denies any other significant past medical history. She has no family history of CAD less than age 55. She denies any other comments or concerns at this time. - Related Data Home Medications Medication Instructions Recorded Confirmed Pnv,Calcium 72/Iron/Folic Acid 1 tab PO HS 09/08/15 04/22/17 [ Plus Tablet] Previous Rx's Medication Instructions Recorded Pantoprazole Sodium [Protonix] 40 mg PO DAILY 30 Days #30 tab 08/07/21 Allergies Allergy/AdvReac Type Severity Reaction Status Date / Time erythromycin base AdvReac Abdominal Verified 04/22/17 06:19 Pain Review of Systems ROS Statement: Those systems with pertinent positive or pertinent negative responses have been documented in the HPI. ROS Other: All systems not noted in ROS Statement are negative. Past Medical History Past Medical History: No Reported History Additional Past Medical History / Comment(s): Hx miscarriage X2, hx hypoglycemia. History of Any Multi-Drug Resistant Organisms: None Reported Past Surgical History: Cholecystectomy Additional Past Surgical History / Comment(s): D&C X2, removal of precancerous moles. Past Anesthesia/Blood Transfusion Reactions: Previous Problems w/ Anesthesia Additional Past Anesthesia/Blood Transfusion Reaction / Comment(s): Hx of panic attack and very emotional with anesthesia, no hx blood transfusion. Past Psychological History: No Psychological Hx Reported Smoking Status: Never smoker Past Alcohol Use History: Rare Past Drug Use History: None Reported - Past Family History Mother Family Medical History: No Reported History Additional Family Medical History / Comment(s): glaucoma Father Family Medical History: Hypertension Additional Family Medical History / Comment(s): glaucoma General Exam Limitations: no limitations General appearance: alert, in no apparent distress Head exam: Present: atraumatic, normocephalic, normal inspection Eye exam: Present: normal appearance, PERRL, EOMI. Absent: scleral icterus, conjunctival injection, periorbital swelling ENT exam: Present: normal exam, mucous membranes moist Neck exam: Present: normal inspection. Absent: tenderness, meningismus, lymphadenopathy Respiratory exam: Present: normal lung sounds bilaterally. Absent: respiratory distress, wheezes, rales, rhonchi, stridor Cardiovascular Exam: Present: regular rate, normal rhythm, normal heart sounds. Absent: systolic murmur, diastolic murmur, rubs, gallop, clicks GI/Abdominal exam: Present: soft, normal bowel sounds. Absent: distended, tenderness, guarding, rebound, rigid Extremities exam: Present: normal inspection, full ROM, normal capillary refill. Absent: tenderness, pedal edema, joint swelling, calf tenderness Neurological exam: Present: alert, oriented X3, CN II-XII intact Psychiatric exam: Present: normal affect, normal mood Course Vital Signs 08/07/21 08/07/21 08/07/21 12:46 13:20 14:59 Temperature 98.1 F Pulse Rate 131 H 105 H Pulse Rate [ 105 H Herbologist ] Respiratory 18 Rate Blood Pressure 170/105 O2 Sat by Pulse 99 Oximetry 08/07/21 08/07/21 08/07/21 15:00 16:04 17:11 Temperature Pulse Rate 90 86 92 Pulse Rate [ Herbologist ] Respiratory 18 20 20 Rate Blood Pressure 161/112 146/98 145/93 O2 Sat by Pulse 100 98 96 Oximetry Chest Pain MDM - MDM Chest pain atypical. Will check EKG labs troponin and chest x-ray. Given heartburn-like symptoms will give IV Protonix. Blood pressure remains elevated though higher heart rate improved slightly after leaving the operating room. Will give IV labetalol and monitor response. Chest x-ray negative for acute cardiopulmonary disease. Pain slightly improved with IV Protonix but still persists mildly. Discussed treatment options with patient's. Patient agreeable to proceed with CT of the abdomen. CT the abdomen was negative for acute processes to demonstrate nonobstructive bilateral renal calculi. Gallbladder is surgically absent. Findings discussed with patient. Blood pressure improved after IV labetalol to 140s/ 90s without side effects. Discussed her current symptoms along with hypertension. Will discharge home on Protonix. Advised patient to follow-up in regards to epigastric pain, prior possible further cardiac workup outpatient and along with management of hypertension. Disposition Clinical Impression: Atypical chest pain, Gastroesophageal reflux disease Disposition: HOME SELF-CARE Instructions (If sedation given, give patient instructions): Chest Pain (ED), GERD (Gastroesophageal Reflux Disease) in Children (ED), Hypertension (ED) Additional Instructions: Please follow-up with primary care provider in regards to hypertension and continued follow-up of GERD and atypical chest pain symptoms for possible referral to GI and/or cardiology as appropriate. Please return to the Emergency Department if symptoms worsen or any other concerns. Prescriptions: Pantoprazole Sodium [Protonix] 40 mg PO DAILY 30 Days #30 tab Is patient prescribed a controlled substance at d/c from ED?: No Referrals: Artur Lewis DO [Primary Care Provider] - 1-2 days Time of Disposition: 18:42
== END 2021-08-07 19:05 | disposition home or self-care (01) ==
LOC: EC 12:43
DX: K21.9 Gastro-esophageal reflux disease without esophagitis (principal); Z20.822 Contact with and (suspected) exposure to COVID-19; Z88.1 Allergy status to other antibiotic agents
CPT/HCPCS: 36415; 93005; 80053; 83735; 84484; 85025; 85610; 85730; 81003; 87635; 71046; 74150; 99285; 96374; 96375; C9113

== ENCOUNTER → 2021-08-11 | Outpatient (CLI) | payer BC ==
--- NOTE | 2021-08-11 08:07 | MR ---
EXAMINATION TYPE: MR angio head wo con DATE OF EXAM: 08/11/2021 COMPARISON: MRI brain 1 month ago. HISTORY: Abnormal MRI brain TECHNIQUE: Time of flight images focusing on the [place] were performed without contrast.. 2-D and 3-D postprocessing imaging is performed on MRI scanner. FINDINGS: Codominant vertebral arteries patent to basilar junction. No significant focal stenosis or aneurysmal change in the posterior circulation. Patent small caliber bilateral posterior communicatin g arteries are seen. Images of the anterior circulation show patent anterior communicating artery. There is no significant focal stenosis or aneurysm identified. Small anterior right frontal vascular anomaly is outside fiel d of view on this study favored incidental venous angioma. IMPRESSION: No aneurysm at the level of the [place].
--- NOTE | 2021-08-11 08:08 | MR ---
EXAMINATION TYPE: MR brain w con DATE OF EXAM: 08/11/2021 COMPARISON: MRI brain without contrast 1 month earlier. HISTORY: Abnormal MRI brain TECHNIQUE: Multiplanar, multisequence images of the brain and brainstem is performed with IV contrast, utilizing 7 mL intravenous Gadavist . FINDINGS: Post contrast images demonstrate enhancing vessel over the right frontal lobe favoring ana gn venous angioma. No abnormal enhancing masses. The dural venous sinuses appear patent. IMPRESSION: As above.
== END | disposition home or self-care (01) ==
LOC: RADMRIMAIN 06:56
PROVIDERS: ATTEND Psychiatry & Neurology Neurology
DX: R94.02 Abnormal brain scan (principal); Q27.9 Congenital malformation of peripheral vascular system, unspecified; H93.3X1 Disorders of right acoustic nerve
CPT/HCPCS: 70544; 70552; A9585

== ENCOUNTER → 2022-08-24 | Outpatient (CLI) | payer BC ==
[2022-08-24 16:58] LABS: ALT 23 U/L (8-44); AST 19 U/L (13-35); Albumin 4.7 d/dL (3.8-4.9); Albumin/Globulin Ratio 2.35 Ratio (1.60-3.17); Alkaline Phosphatase 79 U/L (41-126); BUN/Creat Ratio 15.71 Ratio (12.00-20.00); Calcium 9.9 mg/dL (8.7-10.3); Carbon Dioxide 26.4 mmol/L (21.6-31.8); Chloride 103 mmol/L (96-109); Glucose 86 mg/dL (70-110); LDL Cholesterol,Calculated 106.2 mg/dL (0.0-131.0); Sodium 139 mmol/L (135-145); T4, Free (Free Thyroxine) 1.19 ng/dL (0.80-1.80); Total Bilirubin 0.5 mg/dL (0.3-1.2); Total Protein 6.7 d/dL (6.2-8.2)
[2022-08-24 17:34] LABS: Basophils # (A) 0.04 X 10*3/uL (0.00-0.10); Basophils % (A) 0.6 %; Eosinophils # (A) 0.14 X 10*3/uL (0.04-0.35); HCT 43.3 % (37.2-46.3); HGB 14.2 d/dL (12.0-15.0); Lymphocytes # (A) 1.98 X 10*3/uL (0.90-5.00); Lymphocytes % (A) 28.6 %; MCHC 32.8 d/dL (32.0-37.0); MCV 91.5 FL (80.0-97.0); Mean Platelet Volume 12.8 FL (9.5-12.2); Monocytes % (A) 7.2 %; NRBC Per 100 WBC 0 X 10*3/uL (0.00-0.01); Neutrophils # (A) 4.24 X 10*3/uL (1.80-7.70); Neutrophils % (A) 61.3 %; Platelet Count 216 X 10*3/uL (140-440); RBC 4.73 X 10*6/uL (4.10-5.20); RDW 11.2 % (11.5-14.5); WBC 6.92 X 10*3/uL (4.50-10.00)
== END | disposition home or self-care (01) ==
LOC: LABWHC1 09:13
PROVIDERS: ATTEND Obstetrics & Gynecology Obstetrics
DX: Z00.00 Encounter for general adult medical examination without abnormal findings (principal); I10 Essential (primary) hypertension; E55.9 Vitamin D deficiency, unspecified
CPT/HCPCS: 36415; 80053; 80061; 82306; 83036; 84439; 84443; 85025

== ENCOUNTER → 2023-04-11 | Outpatient (CLI) | payer BC ==
--- NOTE | 2023-04-12 19:01 | MM ---
Reason for Exam: Screening (asymptomatic). Last mammogram was performed 3 year(s) and 2 month(s) ago. Patient History: Menarche at age 11. Patient has no children. Currently using Hormonal Contraceptives, starting at age 16. Last menstrual period: 03/20/2023 Risk Values: Ashanti 5 year model risk: 0.6%. NCI Lifetime model risk: 11.1%. Prior Study Comparison: 02/17/2020 Bilateral Diagnostic Mammogram, [facility]. 02/17/2020 Right Diagnostic Ultrasound, [facility]. Tissue Density: The breast tissue is heterogeneously dense. This may lower the sensitivity of mammography. Findings: Analyzed By CAD. There is no suspicious group of microcalcifications or new suspicious mass in either breast. Overall Assessment: Negative, BI-RAD 1 Management: Screening Mammogram of both breasts in 1 year. . Patient should continue monthly self-breast exams. A clinical breast exam by your physician is recommended on an annual basis. This exam should not preclude additional follow-up of suspicious palpable abnormalities. Note on Ashanti scores and lifetime risk: 1. A Ashanti score greater than 3% is considered moderate risk. If this is the case, consider specialist referral to assess eligibility for a risk reducing agent. 2. If overall lifetime risk for the development of breast cancer is 20% or higher, the patient may qualify for future screening with alternating mammogram and breast MRI. Electronically signed and approved by: Gomez York M.D. Radiologist
== END | disposition home or self-care (01) ==
LOC: RADMAMWWP 11:34
PROVIDERS: ATTEND Family Medicine
DX: Z12.31 Encounter for screening mammogram for malignant neoplasm of breast (principal)
CPT/HCPCS: 77063; 77067

== ENCOUNTER → 2024-05-12 | Outpatient (CLI) | payer BC ==
--- NOTE | 2024-05-12 08:12 | MM ---
Reason for Exam: Screening (asymptomatic). Last mammogram was performed 1 year(s) and 1 month(s) ago. Patient History: Menarche at age 11. Patient has no children. Currently using Hormonal Contraceptives, starting at age 16. Risk Values: Ashanti 5 year model risk: 0.7%. NCI Lifetime model risk: 11.0%. Prior Study Comparison: 02/17/2020 Bilateral Diagnostic Mammogram, [facility]. 04/11/2023 Bilateral MG 3D screening mammo w/cad, [facility]. Tissue Density: The breasts are extremely dense, which lowers the sensitivity of mammography. Findings: Analyzed By CAD. There is no suspicious group of microcalcifications or new suspicious mass in either breast. Overall Assessment: Negative, BI-RAD 1 Management: Screening Mammogram of both breasts in 1 year. Some advise annual bilateral breast ultrasound surveillance in patient with background extremely dense tissue. Patient should continue monthly self-breast exams. A clinical breast exam by your physician is recommended on an annual basis. This exam should not preclude additional follow-up of suspicious palpable abnormalities. Note on Ashanti scores and lifetime risk: 1. A Ashanti score greater than 3% is considered moderate risk. If this is the case, consider specialist referral to assess eligibility for a risk reducing agent. 2. If overall lifetime risk for the development of breast cancer is 20% or higher, the patient may qualify for future screening with alternating mammogram and breast MRI. [facility], , 05/12/2024 8:10 AM. Electronically signed and approved by: Forest Sarabia M.D.
== END | disposition home or self-care (01) ==
LOC: RADMAMWWP 07:01
PROVIDERS: ATTEND Obstetrics & Gynecology Obstetrics
DX: Z12.31 Encounter for screening mammogram for malignant neoplasm of breast (principal); R92.343 Mammographic extreme density, bilateral breasts; Z79.3 Long term (current) use of hormonal contraceptives
CPT/HCPCS: 77063; 77067